=== PATIENT | male | born 1980 | race African-American/Black ===

== ENCOUNTER 2016-11-06 15:02 | Emergency (ER) | payer OTHER ==
[~2016-11-06] VITALS: Ht 177.8 cm; Wt 79.7 kg
[2016-11-06 15:06] VITALS: TEMP 36.6; Ht 177.8 cm; Wt 79.7 kg
[2016-11-06 16:18] LABS: BASO % 0.3 %; BASO ABS # 0.02 K/uL (0-0.2); COMPLETE YES; EOS % 0.8 %; HEMATOCRIT 45.9 % (42-52); IG% 0.2 %; LYMPH % 29.3 %; LYMPH ABS # 1.93 K/uL (1.2-3.4); MEAN CELL VOLUME 94.8 fL (80-100); MEAN CORPUSCULAR HEMOGLOBIN 33.1 pg (25-34); MEAN CORPUSCULAR HGB CONC 34.9 g/dl (32-36); MEAN PLATELET VOLUME 9.6 fL (7.4-10.4); MONO % 5.3 %; NEUT % 64.1 %; PLATELET COUNT 195 K/uL (130-400); RED BLOOD COUNT 4.84 M/uL (4.7-6.1); WHITE BLOOD COUNT 6.59 K/uL (4.8-10.8)
--- NOTE | 2016-11-06 16:33 | DIAGNOSTIC IMAGING REPORT ---
CT HEAD WITHOUT CONTRAST (CT) CLINICAL HISTORY: Headache, syncope, seizure. COMPARISON STUDY: 12/12/2014 TECHNIQUE: Axial CT of the brain is performed from the vertex to the skull base. IV contrast was not administered for this examination. CT DOSE: 614.27 mGy.cm FINDINGS: No intra or extra-axial mass lesions are visualized. There is no CT evidence of acute cortical infarction. There is no evidence of midline shift. There is no acute hemorrhage. No calvarial fractures are visualized. There is no evidence of pathologic ventricular dilatation. There is no evidence of acute sinusitis IMPRESSION: Normal noncontrast head CT. Electronically signed by: Zechariah Durbin M.D. 11/06/2016 4:31 PM Dictated Date/Time: 11/06/2016 4:30 PM
[2016-11-06 16:48] LABS: AST/SGOT 29 U/L (15-37); BLOOD UREA NITROGEN 13 mg/dl (7-18); BUN/CREATININE RATIO 10.1 (10-20); CALCIUM 9.4 mg/dl (8.5-10.1); CARBON DIOXIDE 26 mmol/L (21-32); CHLORIDE 106 mmol/L (98-107); GLUCOSE 79 mg/dl (70-99); POTASSIUM 4.1 mmol/L (3.5-5.1); SODIUM 142 mmol/L (136-145)
[2016-11-06 17:18] LABS: ALB/GLOB RATIO 1.4 (0.9-2); ALKALINE PHOSPHATASE 48 U/L (45-117); ALT/SGPT 33 U/L (12-78); THYROID STIMULATING HORMONE 0.812 uIu/ml (0.300-4.500)
[2016-11-06] MEDS ORDERED: DEXAMETHASONE SOD INJ 4 MG/ML VIAL IV STA (17:33)
[2016-11-06] MEDS ORDERED: DiphenhydrAMINE HCL 50 MG/ML VIAL IV STA (17:33)
[2016-11-06] MEDS ORDERED: PROCHLORPERAZINE 5 MG/ML 2 ML VIAL IV STA (17:33)
[2016-11-06] MEDS ORDERED: OPTIRAY 320 IV PRN (17:45)
--- NOTE | 2016-11-06 17:50 | EMERGENCY ROOM VISIT NOTE ---
History First contact with patient: 15:47 Chief Complaint: SYNCOPE (NEAR SYNCOPE) Stated Complaint: UNRESPONSIVENESS, PAIN IN SCIENTOLOGIST X 3 DAYS Nursing Triage Summary: pt states he has had a headache since sunday, pt fainted today, found lying on the floor unresponsive and twitching History of Present Illness The patient is a 36 year old male who presents to the Emergency Room with complaints of headache and a syncopal episode. The patient reports that he has had an intermittent headache for the past 3 days. The patient states that the pain became worse yesterday and has been constant today. He does not have a history of headaches and does report this is the worst headache of his life. He rates his current discomfort a 7/10. He describes the pain as a pressure in his left temporal region. He states that today, he stood up and became dizzy when he started walking. He then passed out, but does not remember this episode. The guards with him report that he lost consciousness for approximately 1 minute. They do state there was a minimal amount of shaking afterwards. They do report that the patient was not confused after the episode. The patient denies any numbness, weakness, blurred vision or slurred speech. He denies any recent illness or fevers/chills. He denies any neck pain or stiffness. Review of Systems A complete 10-point Review of Systems was discussed with the patient, with pertinent positives and negatives listed in the History of Present Illness. All remaining Review of Systems questions can be considered negative unless otherwise specified. Past Medical/Surgical History Medical Problems: (1) no known medical problems (2) Syncope Family History No significant family history Social History Smoking Status: Never Smoker Alcohol Use: none Drug Use: none Housing Status: other Occupation Status: other Current/Historical Medications No Active Prescriptions or Reported Meds Allergies Coded Allergies: No Known Allergies (Unverified , 01/23/16) Physical Exam Vital Signs Date Time Temp Pulse Resp B/P Pulse Ox O2 Delivery O2 Flow Rate FiO2 11/06/16 19:16 52 18 112/67 97 11/06/16 17:45 52 20 97/80 97 Room Air 11/06/16 16:44 51 20 107/66 97 Room Air 11/06/16 16:12 61 11/06/16 15:06 36.6 66 18 135/89 99 Room Air Physical Exam VITALS: Vitals are noted on the nurse's note and reviewed by myself. Vital signs stable. GENERAL: This is a 36-year-old male, in no acute distress, nondiaphoretic, well- developed well-nourished. SKIN: The skin was without rashes. HEAD: Normocephalic atraumatic. EARS: External auditory canals clear, tympanic membranes pearly waters without erythema or effusion bilaterally. EYES: Pupils equal round and reactive to light and accommodation. Conjunctivae without injection, sclerae without icterus. Extraocular movements intact. NOSE: Patent, turbinates without inflammation or discharge. No sinus tenderness. MOUTH: Mucous membranes moist. Tonsils are not enlarged. Pharynx without erythema or exudate. NECK: Supple without nuchal rigidity. Cervical spine is nontender. HEART: Regular rate and rhythm without murmurs gallops or rubs. LUNGS: Clear to auscultation bilaterally without wheezes, rales or rhonchi. No dullness to percussion. ABDOMEN: Positive bowel sounds x 4. Soft, nontender to palpation. MUSCULOSKELETAL: Full range of motion in all extremities. Normal gait. Strength 5/5 throughout. NEURO: Patient was alert and oriented to person place and time. Normal sensation to light and sharp touch. Deep tendon reflexes 2+ throughout. No focal neurological deficits. Normal rapid alternating movements. Normal finger to nose testing. Negative Romberg and pronator Drift. Normal gait. Medical Decision & Procedures ER Provider Diagnostic Interpretation: CT HEAD WITHOUT CONTRAST (CT) IMPRESSION: Normal noncontrast head CT. CT HEAD ANGIO WITH CONTRAST IMPRESSION: Normal study. Laboratory Results 11/06/16 16:00 Red Blood Count 4.84, Mean Corpuscular Volume 94.8, Mean Corpuscular Hemoglobin 33.1, Mean Corpuscular Hemoglobin Concent 34.9, Mean Platelet Volume 9.6, Neutrophils (%) (Auto) 64.1, Lymphocytes (%) (Auto) 29.3, Monocytes (%) (Auto) 5.3, Eosinophils (%) (Auto) 0.8, Basophils (%) (Auto) 0.3, Neutrophils # (Auto) 4.23, Lymphocytes # (Auto) 1.93, Monocytes # (Auto) 0.35, Eosinophils # (Auto) 0.05, Basophils # (Auto) 0.02 11/06/16 16:00 Test 11/06/16 16:00 11/06/16 18:15 White Blood Count 6.59 K/uL (4.8-10.8) Red Blood Count 4.84 M/uL (4.7-6.1) Hemoglobin 16.0 g/dL (14.0-18.0) Hematocrit 45.9 % (42-52) Mean Corpuscular Volume 94.8 fL (80-100) Mean Corpuscular Hemoglobin 33.1 pg (25-34) Mean Corpuscular Hemoglobin Concent 34.9 g/dl (32-36) Platelet Count 195 K/uL (130-400) Mean Platelet Volume 9.6 fL (7.4-10.4) Neutrophils (%) (Auto) 64.1 % Lymphocytes (%) (Auto) 29.3 % Monocytes (%) (Auto) 5.3 % Eosinophils (%) (Auto) 0.8 % Basophils (%) (Auto) 0.3 % Neutrophils # (Auto) 4.23 K/uL (1.4-6.5) Lymphocytes # (Auto) 1.93 K/uL (1.2-3.4) Monocytes # (Auto) 0.35 K/uL (0.11-0.59) Eosinophils # (Auto) 0.05 K/uL (0-0.5) Basophils # (Auto) 0.02 K/uL (0-0.2) RDW Standard Deviation 44.2 fL (36.4-46.3) RDW Coefficient of Variation 12.6 % (11.5-14.5) Immature Granulocyte % (Auto) 0.2 % Immature Granulocyte # (Auto) 0.01 K/uL (0.00-0.02) Anion Gap 10.0 mmol/L (3-11) Est Creatinine Clear Calc Drug Dose 82.7 ml/min Estimated GFR () 82.5 Estimated GFR (Non- 71.2 BUN/Creatinine Ratio 10.1 (10-20) Calcium Level 9.4 mg/dl (8.5-10.1) Magnesium Level 2.0 mg/dl (1.8-2.4) Total Bilirubin 0.4 mg/dl (0.2-1) Aspartate Amino Transf (AST/SGOT) 29 U/L (15-37) Alanine Aminotransferase (ALT/SGPT) 33 U/L (12-78) Alkaline Phosphatase 48 U/L (45-117) Troponin I < 0.015 ng/ml (0-0.045) Total Protein 7.9 gm/dl (6.4-8.2) Albumin 4.6 gm/dl (3.4-5.0) Globulin 3.3 gm/dl (2.5-4.0) Albumin/Globulin Ratio 1.4 (0.9-2) Thyroid Stimulating Hormone (TSH) 0.812 uIu/ml (0.300-4.500) Urine Color YELLOW Urine Appearance CLOUDY (CLEAR) Urine pH 7.5 (4.5-7.5) Urine Specific [place] 1.017 (1.000-1.030) Urine Protein NEG (NEG) Urine Glucose (UA) NEG (NEG) Urine Ketones NEG (NEG) Urine Occult Blood NEG (NEG) Urine Nitrite NEG (NEG) Urine Bilirubin NEG (NEG) Urine Urobilinogen NEG (NEG) Urine Leukocyte Esterase NEG (NEG) Urine WBC (Auto) 0 /hpf (0-5) Urine RBC (Auto) 0-4 /hpf (0-4) Urine Hyaline Casts (Auto) 0 /lpf (0-5) Urine Epithelial Cells (Auto) 0-5 /lpf (0-5) Urine Bacteria (Auto) NEG (NEG) Medications Administered Medications (Trade) Dose Ordered Sig/Jenn Route Start Time Stop Time Status Last Admin Dose Admin Diphenhydramine HCl (Benadryl Inj) 25 mg NOW STAT IV 11/06/16 17:33 11/06/16 17:34 DC 11/06/16 17:45 25 MG Prochlorperazine Edisylate (Compazine Inj) 10 mg NOW STAT IV 11/06/16 17:33 11/06/16 17:34 DC 11/06/16 17:44 10 MG Dexamethasone Sodium Phosphate (Decadron Inj) 10 mg NOW STAT IV 11/06/16 17:33 11/06/16 17:34 DC 11/06/16 17:44 10 MG ECG Rate (beats per minute): 51 Rhythm: sinus bradycardia Findings: no ectopy, other (early repolarization) Change: no significant change Medical Decision Differential diagnosis includes subarachnoid hemorrhage, aneurysm, migraine, dehydration, seizure, syncope, among others. The patient was evaluated as above. Labs were drawn and IV access was obtained. Imaging studies were performed and read by radiology as above. The patient was medicated with 25 mg Benadryl, 30 mg Toradol, and 10 mg Compazine IV. The patient was reassessed multiple times during their stay in the emergency department and remained in stable condition. The patient is a 36-year-old male who presents today complaining of headache and a syncopal episode. Labs revealed concerning leukocytosis, anemia or electrolyte abnormalities. EKG was interpreted by myself and showed a sinus bradycardia with early repolarization, similar to previous. Noncontrast CT of the head and CT angiogram were read by radiology with no acute findings. The patient's symptoms are consistent with a syncopal episode versus seizure. The patient was treated with Benadryl, Compazine and Toradol was significantly for his headache. He will follow-up with the [facility] in the next few days for reevaluation. Based on the patient's presentation, lab results, and imaging studies, I feel the patient is stable for outpatient treatment. The patient's case was reviewed with Dr. Maldonado, ED attending physician, who agreed with my assessment and treatment plan. Discharge instructions were reviewed with the patient. The patient verbalized understanding of my assessment and treatment plan and was discharged home in good condition. Impression Primary Impression: Syncope Additional Impression: Headache Departure Information Dispostion Home / Self-Care Condition GOOD Prescriptions No Active Prescriptions or Reported Meds Referrals Swati YA (PCP) Patient Instructions My [facility] Additional Instructions You have been treated in the Emergency Department for a Headache. For pain control, you can use the following [id number] medicines (if >12 yo): - Regular strength (325mg/tab) Tylenol (acetaminophen) 2 tabs every 4-6 hours as needed. Do not exceed 12 tablets in a 24 hour period. Avoid taking more than 4 grams (4000 mg) of Tylenol per day. This includes any other sources of acetaminophen you may take on a regular basis. - Regular strength (200 mg/tab) Advil (ibuprofen) 1-2 tabs every 4-6 hours as needed. Do not exceed a dose of 3200 mg per day. You should relax in a quiet, dark place for the rest of the day. Avoid any possible triggers including: cigarette smoke, caffeine, nicotine, chocolate, wine, beer, loud noises or music, or bright lights. Follow-up with your primary care provider in one to 2 days for further evaluation of these symptoms. Return to the Emergency Department if your current symptoms worsen despite treatment course outlined above, or if you develop any of the following symptoms : intractable pain despite aforementioned treatment course, visual disturbances , loss of vision, unilateral weakness or facial drooping, slurring of speech, loss of coordination, or loss of consciousness. Problem Qualifiers Primary Impression: Syncope Syncope type: unspecified Qualified Codes: R55 - Syncope and collapse Additional Impression: Headache Headache type: unspecified Headache chronicity pattern: acute headache Intractability: not intractable Qualified Codes: R51 - Headache
--- NOTE | 2016-11-06 18:30 | DIAGNOSTIC IMAGING REPORT ---
CT HEAD ANGIO WITH CONTRAST CLINICAL HISTORY: Severe headache, syncope, seizure. TECHNIQUE: CT angiography of the head was performed in a dynamic helical fashion during intravenous administration of 90 cc of Optiray 320. MIP imaging was performed CT DOSE: 129.20 mGy.cm COMPARISON STUDY: Noncontrast CT scan dated 11/06/2016 FINDINGS: There are no lesion suspicious for aneurysm. There are no major intracranial branch occlusions. The dural venous sinuses appear patent. There are no pathologically enhancing masses. IMPRESSION: Normal study. Electronically signed by: Zechariah Durbin M.D. 11/06/2016 6:29 PM Dictated Date/Time: 11/06/2016 6:26 PM
[2016-11-06 18:37] LABS: MANUAL MICROSCOPIC REQUIRED? NO; REVIEW REQ? NO; URINE APPEARANCE CLOUDY (CLEAR); URINE BILIRUBIN NEG (NEG); URINE COLOR YELLOW; URINE EPITHELIAL CELL AUTO 0-5 /lpf (0-5); URINE NITRITE NEG (NEG); URINE PH 7.5 (4.5-7.5); URINE SPECIFIC GRAVITY 1.017 (1.000-1.030); UROBILINOGEN NEG (NEG); ZZUR CULT IF INDIC CLEAN CATCH NO
[2016-11-06 19:16] VITALS: BP 112/67; PULSE 52; O2SAT 97
== END 2016-11-06 19:18 | disposition home or self-care (01) ==
LOC: C.EDB 15:05 → C.EDC 19:18
DX: R55 Syncope and collapse (principal); R51 Headache; R00.1 Bradycardia, unspecified

== ENCOUNTER 2016-12-02 18:56 | Emergency (ER) | payer OTHER ==
[~2016-12-02] VITALS: Ht 180.3 cm; Wt 91.5 kg
[2016-12-02 18:57] VITALS: TEMP 37; Ht 180.3 cm; Wt 91.5 kg
[2016-12-02] MEDS ORDERED: ZIPR1CAP4 PO (19:10)
[2016-12-02] MEDS ORDERED: DIPH50TA10 PO (19:10)
[2016-12-02] MEDS ORDERED: PRAZ1CAP10 PO (19:10)
--- NOTE | 2016-12-02 19:36 | DIAGNOSTIC IMAGING REPORT ---
CT HEAD WITHOUT CONTRAST (CT) CLINICAL HISTORY: Mental status change. Attempted finding. COMPARISON STUDY: 11/06/2016 TECHNIQUE: Axial CT of the brain is performed from the vertex to the skull base. IV contrast was not administered for this examination. CT DOSE: FINDINGS: No intra or extra-axial mass lesions are visualized. There is no CT evidence of acute cortical infarction. There is no evidence of midline shift. There is no acute hemorrhage. No calvarial fractures are visualized. There is no evidence of pathologic ventricular dilatation. There is no evidence of acute sinusitis IMPRESSION: Normal noncontrast head CT. Electronically signed by: Zechariah Durbin M.D. 12/02/2016 7:35 PM Dictated Date/Time: 12/02/2016 7:33 PM
--- NOTE | 2016-12-02 19:45 | DIAGNOSTIC IMAGING REPORT ---
CT OF THE CERVICAL SPINE CLINICAL HISTORY: Neck pain. Attempted finding. COMPARISON STUDY: No previous studies for comparison. CT DOSE: 1340.62 mGy.cm TECHNIQUE: CT scan of the cervical spine was performed from the skull base to the thoracic inlet. Images are reviewed in the axial, sagittal, and coronal planes. IV contrast was not administered for this examination. FINDINGS: The visualized portions of the lung apices reveal no evidence of pneumothorax. The prevertebral soft tissues are normal. No fractures or subluxations are visualized. There is a developmentally incomplete posterior C1 arch There are mild degenerative changes present the C4-5, C5-6, and C6-7 levels. IMPRESSION: No evidence of acute fracture or traumatic subluxation. Electronically signed by: Zechariah Durbin M.D. 12/02/2016 7:43 PM Dictated Date/Time: 12/02/2016 7:41 PM
--- NOTE | 2016-12-02 20:11 | DIAGNOSTIC IMAGING REPORT ---
CHEST ONE VIEW PORTABLE CLINICAL HISTORY: attempted hanging COMPARISON STUDY: 01/23/2016 FINDINGS: The heart is at the upper limits of normal in size given the AP supine technique. There is no focal pulmonary consolidation. No pleural effusions are visualized. No pneumothorax is visualized on this supine study.[ IMPRESSION: Portable supine study. No acute findings. Electronically signed by: Zechariah Durbin M.D. 12/02/2016 8:10 PM Dictated Date/Time: 12/02/2016 8:08 PM
[2016-12-02 20:37] VITALS: BP 118/66; PULSE 64; O2SAT 97
--- NOTE | 2016-12-03 17:04 | EMERGENCY ROOM VISIT NOTE ---
History Report prepared by Aaliyah: Isatu Nair Under the Supervision of: Dr. Guillermo Granger D.O. First contact with patient: 18:57 Stated Complaint: ATTEMPTED HANGING History of Present Illness The patient is a 36 year old male who presents to the Emergency Room via EMS to be evaluated for an episode of attempted hanging that occurred this evening. Per EMS, the patient attempted to hang himself with a sheet in his nursing home cell. Per EMS, the patient's oxygen saturation was 96% on EMS's first contact with the patient. EMS state that the patient has not been responding to their questioning. EMS states that there were no signs of trauma and no ligature grace on the patient. Per correction officers, the patient may have had a seizure. The correction officers note that they were not present with the patient and they do not know the patient and were not briefed on his case today. The history is limited as the patient will not answer questions. Source of History: EMS History Limited By: poor cooperation Onset: this evening Position: other (global) Timing: other (episode) Note: Per correction officers, the patient may have had a seizure. The correction officers note that they were not present with the patient and they do not know the patient and were not briefed on his case today. Review of Systems See HPI for pertinent positives & negatives. A total of 10 systems reviewed and were otherwise negative. Past Medical & Surgical Medical Problems: (1) no known medical problems (2) Syncope Family History No significant family history Social History Smoking Status: Never Smoker Alcohol Use: none Drug Use: none Housing Status: other Occupation Status: other Current/Historical Medications Scheduled Diphenhydramine Hcl (Sleep) (Diphenhydramine Hcl), 1 TAB PO HS Prazosin Hcl (Prazosin), 1 MG PO HS Ziprasidone Hcl (Geodon), 40 MG PO BID Allergies Coded Allergies: No Known Allergies (Unverified , 12/02/16) Physical Exam Vital Signs Date Time Temp Pulse Resp B/P Pulse Ox O2 Delivery O2 Flow Rate FiO2 12/02/16 20:37 64 20 118/66 97 Room Air 12/02/16 18:57 37.0 86 18 156/61 97 Room Air Physical Exam GENERAL: Patient is awake and alert, will no answer questions but does not appear to be anxious or uncomfortable. Immobilized with rigid cervical collar and long spine board prior to arrival. EYES: The conjunctivae are clear. The pupils are round and reactive. EARS, NOSE, MOUTH AND THROAT: The nose is without any evidence of any deformity. Mucous membranes are moist tongue is midline NECK: Trachea was midline, there was no crepitus, no ligature grace noted, rigid collar remains in place. RESPIRATORY: Normal respiratory effort is noted there is no evidence of wheezing rhonchi or rales CARDIOVASCULAR: Regular rate and rhythm noted there no murmurs rubs or gallops normal S1 normal S2 GASTROINTESTINAL: The abdomen is soft. Bowel sounds are present in all quadrants. Abdomen is nontender MUSCULOSKELETAL/EXTREMITIES: There is no evidence of gross deformity full range of motion is noted in the hips and shoulders SKIN: There is no obvious evidence of any rash. There are no petechiae, pallor or cyanosis noted. NEUROLOGIC: Patient will not answer questions so cannot assess orientation at this time. PSYCHOLOGICAL: Will not answer questions, unable to assess suicidal or homicidal ideation at this time, incident was reported to be an attempted self hanging Medical Decision & Procedures ER Provider Diagnostic Interpretation: Radiology results as stated below per my review and radiologist interpretation: CT HEAD WITHOUT CONTRAST (CT) CLINICAL HISTORY: Mental status change. Attempted finding. COMPARISON STUDY: 11/06/2016 TECHNIQUE: Axial CT of the brain is performed from the vertex to the skull base. IV contrast was not administered for this examination. CT DOSE: FINDINGS: No intra or extra-axial mass lesions are visualized. There is no CT evidence of acute cortical infarction. There is no evidence of midline shift. There is no acute hemorrhage. No calvarial fractures are visualized. There is no evidence of pathologic ventricular dilatation. There is no evidence of acute sinusitis IMPRESSION: Normal noncontrast head CT. Electronically signed by: Zechariah Durbin M.D. 12/02/2016 7:35 PM Dictated Date/Time: 12/02/2016 7:[address] OF THE CERVICAL SPINE CLINICAL HISTORY: Neck pain. Attempted finding. COMPARISON STUDY: No previous studies for comparison. CT DOSE: 1340.62 mGy.cm TECHNIQUE: CT scan of the cervical spine was performed from the skull base to the thoracic inlet. Images are reviewed in the axial, sagittal, and coronal planes. IV contrast was not administered for this examination. FINDINGS: The visualized portions of the lung apices reveal no evidence of pneumothorax. The prevertebral soft tissues are normal. No fractures or subluxations are visualized. There is a developmentally incomplete posterior C1 arch There are mild degenerative changes present the C4-5, C5-6, and C6-7 levels. IMPRESSION: No evidence of acute fracture or traumatic subluxation. Electronically signed by: Zechariah Durbin M.D. 12/02/2016 7:43 PM Dictated Date/Time: 12/02/2016 7:41 PM CHEST ONE VIEW PORTABLE CLINICAL HISTORY: attempted hanging COMPARISON STUDY: 01/23/2016 FINDINGS: The heart is at the upper limits of normal in size given the AP supine technique. There is no focal pulmonary consolidation. No pleural effusions are visualized. No pneumothorax is visualized on this supine study.[ IMPRESSION: Portable supine study. No acute findings. Electronically signed by: Zechariah Durbin M.D. 12/02/2016 8:10 PM Dictated Date/Time: 12/02/2016 8:08 PM ED Course 1857: The patient was evaluated in room B7. A complete history and physical examination were performed. 2032: Upon reevaluation, the patient is doing well. I discussed the results and treatment plan with the patient and the correction officers. They verbalized agreement of the treatment plan. The patient was discharged back to nursing home. Medical Decision Differential diagnosis: Etiologies such as fracture, dislocation, intra-abdominal, pneumothorax, intrathoracic , intracranial, neurologic, as well as other traumatic pathologies were entertained. treatment. Return instructions were outlined and the patient was discharged in stable condition. Nursing notes reviewed. The patient is a 36-year-old male who presented to the emergency department after an attempted hanging at the nursing home. The patient would not answer questions. He had no crepitus or signs of free air on radiographic studies around the trachea. He had no ligature grace. I discussed the patient's radiographic studies with him although he did not answer any questions at all. I recommended that he be placed in a suicide watch back at the nursing home. There are also encouraged to have the patient evaluated immediately for mental health evaluation. The patient is otherwise healthy. The patient was seen in our facility recently for other complaints and I did review this chart. There are also encouraged to return the patient to the emergency department immediately for any signs of difficulty breathing or if need arises. They're also encouraged to bring the patient back if he started having difficulty with his voice difficulty breathing or if any other worrisome symptoms develop. Impression Primary Impression: Suicide gesture Additional Impression: Suicide attempt by hanging Scribe Attestation The scribe's documentation has been prepared under my direction and personally reviewed by me in its entirety. I confirm that the note above accurately reflects all work, treatment, procedures, and medical decision making performed by me. Departure Information Dispostion Home / Self-Care Referrals Ainsley YA (PCP) Forms HOME CARE DOCUMENTATION FORM, IMPORTANT VISIT INFORMATION, WORK / SCHOOL INSTRUCTIONS Patient Instructions Depression Suicide Older Adults, My [facility] Additional Instructions Continue suicide precautions. Encouraged the patient to have an evaluation of his mental health as soon as possible. Return to the emergency department if the patient develops difficulty breathing or any other worrisome symptoms develop. Problem Qualifiers Primary Impression: Suicide gesture Encounter type: initial encounter Qualified Codes: X83.8XXA - Intentional self-harm by other specified means, initial encounter Additional Impression: Suicide attempt by hanging Encounter type: initial encounter Qualified Codes: T71.162A - Asphyxiation due to hanging, intentional self-harm, initial encounter
== END 2016-12-02 20:45 ==
LOC: EDBD 18:56 → C.EDB 18:57
DX: T71.162A Asphyxiation due to hanging, intentional self-harm, initial encounter (principal); X83.8XXA Intentional self-harm by other specified means, initial encounter